=== PATIENT | female | born 1960 | race Caucasian/White ===

== ENCOUNTER 2019-09-05 12:18 | Emergency (ER) | payer OTHER ==
[~2019-09-05] VITALS: Ht 152.4 cm; Wt 54.6 kg
--- NOTE | 2019-09-05 13:21 | NUR ---
SERVER SERVICE ASSISTANT: PT TO ROOM FROM [facility]NN
--- NOTE | 2019-09-05 13:31 | NUR ---
PT BROUGHT BACK FROM TRIAGE WITH CHIEF COMPLAINT OF SINUS PRESSURE/PAIN INVOLVING LEFT EAR. PT DENIES CP, SOB, FEVER, OR RECENT TRAUMA.
--- NOTE | 2019-09-05 13:40 | NUR ---
ASIF FLORES AT BEDSIDE TO DISCUSS POC
[2019-09-05 13:56] VITALS: BP 152/68
--- NOTE | 2019-09-05 13:56 | NUR ---
DISCHARGE INSTRUCTIONS REVIEWED
== END 2019-09-05 14:06 | disposition home or self-care (01) ==
LOC: ED 13:36
DX: J30.2 Other seasonal allergic rhinitis (principal); J32.0 Chronic maxillary sinusitis; I10 Essential (primary) hypertension
CPT/HCPCS: 99283